=== PATIENT | female | born 1965 | race Caucasian/White ===

== ENCOUNTER 2017-09-12 23:29 | Emergency (ER) | payer OTHER ==
[~2017-09-12] VITALS: Ht 165.1 cm; Wt 72.6 kg
[2017-09-13] MEDS ORDERED: ASPIR 8181 M1 PO (00:15)
[2017-09-13] MEDS ORDERED: NORCO 5-325 TA1 EACH PO (00:54)
[2017-09-13 02:18] VITALS: BP 164/88
== END 2017-09-13 02:00 | disposition home or self-care (01) ==
LOC: ER 23:29
DX: M70.22 Olecranon bursitis, left elbow (principal); Y93.89 Activity, other specified